=== PATIENT | male | born 1945 | race Caucasian/White ===

== ENCOUNTER → 2017-02-17 | Outpatient (CLI) | payer MEDICARE, OTHER ==
[~2017-02-17] MED LIST: ASPI-587 PO; ASPI-808 PO; ASPI-983 PO; CEFU500T63 PO; CLOP75TA PO; ELDERBERRY PO; HYDR-1231 PO; HYDR-3720 PO; IBUP100T34 PO; LOSA1TAB20 PO; LOSA50TA36 PO; MECL25TA3 PO; METO-387 PO; MULT-608; MULT-974 PO; MULT1TAB69 PO; OMG1KC
--- NOTE | 2017-02-17 12:47 | Diagnostic Imaging Report ---
EXAMINATION: Right lower extremity duplex venous ultrasound. TECHNIQUE: DVT protocol. Multiple sonographic images with color Doppler and waveform interrogation were performed of the right lower extremity veins with compression and augmentation maneuvers. INDICATION: Right leg pain. FINDINGS: The right lower extremity veins from the groin to below the knee veins were examined with normal color-flow, compressibility and normal waveform demonstrated. The great saphenous vein is patent. There are mildly dilated varicose veins seen in the calf without thrombosis. IMPRESSION: No evidence of DVT in the right lower extremity. Varicose veins in the calf. Dictated by: Dictated on workstation # [id number]
== END ==
LOC: RAD 12:01
PROVIDERS: ATTEND Nurse Practitioner Family
DX: I83.90 Asymptomatic varicose veins of unspecified lower extremity (principal); M79.604 Pain in right leg

== ENCOUNTER 2018-07-20 06:42 | Day surgery (SDC) | payer MEDICARE, OTHER ==
[2018-07-20] VITALS (22 sets, daily range): BP systolic 109–167; BP diastolic 15–110
[~2018-07-20] VITALS: Ht 177.8 cm; Wt 108.9 kg
[~2018-07-20 06:42] MED LIST changes: -LOSA50TA36 PO; +LOSA50TA7 PO
--- OUTSIDE RECORDS SUMMARY | 2018-07-20 06:46 | XMS REPORT | Continuity of Care Document ---
Author Author [facility] Organization [facility] Address Unknown Phone Unavailable Allergies Active Description Code Type Severity Reaction Onset Reported/Identified Relationship to Patient Clinical Status Yes No Known Drug Allergies [id number] Drug Allergy Mild N/A 03/01/2016 Medications There is no data. Problems Date Dx Coded Attending Type Code Diagnosis Diagnosed By 04/22/2012 Ot 715.31 LOC OSTEOARTH NOS-SHLDER 01/24/2014 JASMIN GUZMAN DO S Ot 276.8 HYPOPOTASSEMIA 01/24/2014 JASMIN GUZMAN DO S Ot 427.81 SINOATRIAL NODE DYSFUNCT 01/24/2014 WHITNEY GUZMAN DOLINE S Ot 428.0 CONGESTIVE HEART FAILURE NOS 01/24/2014 LIZETTE GUZMAN DOQUELINE S Ot 458.9 HYPOTENSION NOS 01/24/2014 LIZETTE GUZMAN DOQUELINE S Ot 585.9 CHRONIC KIDNEY DISEASE, UNSPECIFIED 01/24/2014 LIZETTE GUZMAN DOQUELINE S Ot 790.6 ABN BLOOD CHEMISTRY NEC 01/24/2014 LIZETTE GUZMAN DOQUELINE S Ot 802.0 NASAL BONE FX-CLOSED 01/24/2014 WHITNEY GUZMAN DOLINE S Ot 803.09 CL SKULL FX NEC-CONCUSS 01/24/2014 LIZETTE GUZMAN DOQUELINE S Ot 847.0 SPRAIN OF NECK 01/24/2014 LIZETTE GUZMAN DOQUELINE S Ot 924.11 CONTUSION OF KNEE 01/24/2014 WHITNEY GUZMAN DOLINE S Ot E000.8 OTHER EXTERNAL CAUSE STATUS 01/24/2014 JASMIN GUZMAN DO S Ot E001.1 ACTIVITIES INVOLVING RUNNING 01/24/2014 JASMIN GUZMAN DO S Ot E849.[address]/HIGHWAY 01/24/2014 JASMIN GUZMAN DO S Ot E888.9 FALL NOS 01/24/2014 OREJASMIN YA DO S Ot V17.3 FAM HX-ISCHEM HEART DIS 11/20/2014 Ot 715.91 11/20/2014 Ot V72.63 11/20/2014 Ot V72.81 11/20/2014 Ot V72.83 11/20/2014 Ot V74.8 11/20/2014 ADAN ARRINGTON, CHAZ Clarke Ot 729.5 PAIN IN LIMB 11/20/2014 ADAN ARRINGTON, CHAZ Clarke Ot 924.8 MULTIPLE CONTUSIONS NEC 11/20/2014 ADAN ARRINGTON, CHAZ Clarke Ot E000.8 OTHER EXTERNAL CAUSE STATUS 11/20/2014 ADAN ARRINGTON, CHAZ Clarke Ot E885.9 FALL FROM SLIPPING, TRIPPING, OR STUMBLI 03/01/2016 CAMILLE ARRINGTON, FABIEN Dailey Ot R42 DIZZINESS AND GIDDINESS 03/01/2016 CAMILLE ARRINGTON, FABIEN K Ot R51 HEADACHE 03/04/2016 CAMILLE ARRINGTON, FABIEN K Ot R42 DIZZINESS AND GIDDINESS 03/04/2016 CAMILLE ARRINGTON, FABIEN K Ot R51 HEADACHE 03/11/2016 CAMILLE ARRINGTON, FABIEN K Ot R42 DIZZINESS AND GIDDINESS 03/11/2016 CAMILLE ARRINGTON, FABIEN K Ot R51 HEADACHE 03/15/2016 CAMILLE ARRINGTON, FABIEN K Ot R42 DIZZINESS AND GIDDINESS 03/15/2016 CAMILLE ARRINGTON, FABIEN Dailey Ot R51 HEADACHE 02/17/2017 Ot 715.91 OSTEOARTHROS NOS-SHLDER 02/17/2017 Ot V72.63 PRE- PROCEDURAL LABORATORY EXAMINATION 02/17/2017 Ot V72.81 EXAM-PRE- OPERATIVE CARDIOVASCULAR 02/17/2017 Ot V72.83 EXAM PRE- OPERATIVE NEC 02/17/2017 Ot V74.8 SCREEN- BACTERIAL DIS NEC 02/17/2017 LIAN MCGARRY Ot M79.604 PAIN IN RIGHT LEG 03/15/2017 LIAN MCGARRY Ot I83.90 ASYMPTOMATIC VARICOSE VEINS OF UNSPECIFI 03/15/2017 LIAN MCGARRY Ot M79.604 PAIN IN RIGHT LEG 05/20/2017 JASMIN GUZMAN DO S Ot E03.9 HYPOTHYROIDISM, UNSPECIFIED 05/20/2017 JASMIN GUZMAN DO S Ot E66.9 OBESITY, UNSPECIFIED 05/20/2017 JASMIN GUZMAN DO Ot E78.5 HYPERLIPIDEMIA, UNSPECIFIED 05/20/2017 JASMIN GUZMAN DO Ot E86.0 DEHYDRATION 05/20/2017 JASMIN GUZMAN DO Ot I10 ESSENTIAL (PRIMARY) HYPERTENSION 05/20/2017 JASMIN GUZMAN DO Ot I25.10 ATHSCL HEART DISEASE OF [place] CORONARY 05/20/2017 JASMIN GUZMAN DO Ot I48.0 PAROXYSMAL ATRIAL FIBRILLATION 05/20/2017 JASMIN GUZMAN DO Ot I49.5 SICK SINUS SYNDROME 05/20/2017 JASMIN GUZMAN DO Ot N28.9 DISORDER OF KIDNEY AND URETER, UNSPECIFI 05/20/2017 JASMIN GUZMAN DO Ot R94.6 ABNORMAL RESULTS OF THYROID FUNCTION KEVIN 05/20/2017 JASMIN GUZMAN DO Ot Z68.32 BODY MASS INDEX (BMI) 32.0-32.9, ADULT 05/20/2017 JASMIN GUZMAN DO Ot Z95.5 PRESENCE OF CORONARY ANGIOPLASTY IMPLANT 05/20/2017 JASMIN GUZMAN DO Ot 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 DUAL SHARON IN CHEST SUBCU/FA 05/19/2017 8U303I0 MEASURE OF CARDIAC SAMPL PRESSURE, L H 05/19/2017 [id number] FLUOROSCOPY OF MULT COR ART USING L OSM 05/19/2017 [id number] FLUOROSCOPY OF LEFT HEART USING LOW OSMO 05/19/2017 Results Test Result Range Complete blood count (CBC) with automated white blood cell (WBC) differential - 03/01/16 14:45 Blood leukocytes automated count (number/volume) 7.7 10*3/uL 4.3-11.0 Blood erythrocytes automated count (number/volume) 4.96 10*6/uL 4.35-5.85 Venous blood hemoglobin measurement (mass/volume) 14.7 g/dL 13.3-17.7 Blood hematocrit (volume fraction) 44 % 40-54 Automated erythrocyte mean corpuscular volume 88 [foz_us] 80-99 Automated erythrocyte mean corpuscular hemoglobin (mass per erythrocyte) 30 pg 25-34 Automated erythrocyte mean corpuscular hemoglobin concentration measurement ( mass/volume) 34 g/dL 32-36 Automated erythrocyte distribution width ratio 14.0 % 10.0-14.5 Automated blood platelet count (count/volume) 197 10*3/uL 130-400 Automated blood platelet mean volume measurement 10.8 [foz_us] 7.4-10.4 Automated blood neutrophils/100 leukocytes 67 % 42-75 Automated blood lymphocytes/100 leukocytes 21 % 12-44 Blood monocytes/100 leukocytes 8 % 0-12 Automated blood eosinophils/100 leukocytes 3 % 0-10 Automated blood basophils/100 leukocytes 1 % 0-10 Blood neutrophils automated count (number/volume) 5.2 10*3 1.8-7.8 Blood lymphocytes automated count (number/volume) 1.6 10*3 1.0-4.0 Blood monocytes automated count (number/volume) 0.6 10*3 0.0-1.0 Automated eosinophil count 0.2 10*3/uL 0.0-0.3 Automated blood basophil count (count/volume) 0.1 10*3/uL 0.0-0.1 Comprehensive metabolic panel - 03/01/16 14:45 Serum or plasma sodium measurement (moles/volume) 139 mmol/L 135-145 Serum or plasma potassium measurement (moles/volume) 4.1 mmol/L 3.6-5.0 Serum or plasma chloride measurement (moles/volume) 105 mmol/L 98-107 Carbon dioxide 27 mmol/L 21-32 Serum or plasma anion gap determination (moles/volume) 7 mmol/L 5-14 Serum or plasma urea nitrogen measurement (mass/volume) 16 mg/dL 7-18 Serum or plasma creatinine measurement (mass/volume) 1.13 mg/dL 0.60-1.30 Serum or plasma urea nitrogen/creatinine mass ratio 14 NRG Serum or plasma creatinine measurement with calculation of estimated glomerular filtration rate > NRG Serum or plasma glucose measurement (mass/volume) 94 mg/dL 70-105 Serum or plasma calcium measurement (mass/volume) 9.3 mg/dL 8.5-10.1 Serum or plasma total bilirubin measurement (mass/volume) 0.8 mg/dL 0.1-1.0 Serum or plasma alkaline phosphatase measurement (enzymatic activity/volume) 70 U/L 40-136 Serum or plasma aspartate aminotransferase measurement (enzymatic activity/ volume) 18 U/L 5-34 Serum or plasma alanine aminotransferase measurement (enzymatic activity/volume ) 17 U/L 0-55 Serum or plasma protein measurement (mass/volume) 6.6 g/dL 6.4-8.2 Serum or plasma albumin measurement (mass/volume) 4.1 g/dL 3.2-4.5 Complete blood count (CBC) with automated white blood cell (WBC) differential - 05/18/17 10:56 Blood leukocytes automated count (number/volume) 11.3 10*3/uL 4.3-11.0 Blood erythrocytes automated count (number/volume) 5.37 10*6/uL 4.35-5.85 Venous blood hemoglobin measurement (mass/volume) 15.8 g/dL 13.3-17.7 Blood hematocrit (volume fraction) 47 % 40-54 Automated erythrocyte mean corpuscular volume 87 [foz_us] 80-99 Automated erythrocyte mean corpuscular hemoglobin (mass per erythrocyte) 29 pg 25-34 Automated erythrocyte mean corpuscular hemoglobin concentration measurement ( mass/volume) 34 g/dL 32-36 Automated erythrocyte distribution width ratio 13.7 % 10.0-14.5 Automated blood platelet count (count/volume) 278 10*3/uL 130-400 Automated blood platelet mean volume measurement 11.5 [foz_us] 7.4-10.4 Automated blood neutrophils/100 leukocytes 79 % 42-75 Automated blood lymphocytes/100 leukocytes 13 % 12-44 Blood monocytes/100 leukocytes 8 % 0-12 Automated blood eosinophils/100 leukocytes 0 % 0-10 Automated blood basophils/100 leukocytes 0 % 0-10 Blood neutrophils automated count (number/volume) 8.9 10*3 1.8-7.8 Blood lymphocytes automated count (number/volume) 1.5 10*3 1.0-4.0 Blood monocytes automated count (number/volume) 0.9 10*3 0.0-1.0 Automated eosinophil count 0.1 10*3/uL 0.0-0.3 Automated blood basophil count (count/volume) 0.0 10*3/uL 0.0-0.1 PT panel in platelet poor plasma by coagulation assay - 05/18/17 10:56 Prothrombin time (PT) in platelet poor plasma by coagulation assay 13.1 s 12.2-14.7 INR in platelet poor plasma or blood by coagulation assay 1.0 0.8-1.4 Activated partial thromboplastin time (aPTT) in platelet poor plasma bycoagulation assay - 05/18/17 10:56 Activated partial thromboplastin time (aPTT) in platelet poor plasma bycoagulation assay 24 s 24-35 Comprehensive metabolic panel - 05/18/17 10:56 Serum or plasma sodium measurement (moles/volume) 140 mmol/L 135-145 Serum or plasma potassium measurement (moles/volume) 4.1 mmol/L 3.6-5.0 Serum or plasma chloride measurement (moles/volume) 104 mmol/L 98-107 Carbon dioxide 24 mmol/L 21-32 Serum or plasma anion gap determination (moles/volume) 12 mmol/L 5-14 Serum or plasma urea nitrogen measurement (mass/volume) 20 mg/dL 7-18 Serum or plasma creatinine measurement (mass/volume) 1.98 mg/dL 0.60-1.30 Serum or plasma urea nitrogen/creatinine mass ratio 10 NRG Serum or plasma creatinine measurement with calculation of estimated glomerular filtration rate 33 NRG Serum or plasma glucose measurement (mass/volume) 170 mg/dL 70-105 Serum or plasma calcium measurement (mass/volume) 9.8 mg/dL 8.5-10.1 Serum or plasma total bilirubin measurement (mass/volume) 1.0 mg/dL 0.1-1.0 Serum or plasma alkaline phosphatase measurement (enzymatic activity/volume) 73 U/L 40-136 Serum or plasma aspartate aminotransferase measurement (enzymatic activity/ volume) 20 U/L 5-34 Serum or plasma alanine aminotransferase measurement (enzymatic activity/volume ) 15 U/L 0-55 Serum or plasma protein measurement (mass/volume) 6.8 g/dL 6.4-8.2 Serum or plasma albumin measurement (mass/volume) 4.0 g/dL 3.2-4.5 Magnesium - 05/18/17 10:56 Magnesium 1.9 mg/dL 1.8-2.4 Serum or plasma lithium measurement (moles/volume) - 05/18/17 10:56 BNP level 214.0 pg/mL <100.0 Serum or plasma troponin i.cardiac measurement (mass/volume) - 05/18/17 10:56 Serum or plasma troponin i.cardiac measurement (mass/volume) < ng/ mL <0.30 Serum or plasma thyroxine (T4) free measurement (mass/volume) - 05/18/17 10:56 Serum or plasma thyroxine (T4) free measurement (mass/volume) 0.99 ng/dL 0.70-1.48 Serum or plasma thyrotropin measurement by detection limit <=0.05 miu/l (units/ volume) - 05/18/17 10:56 Serum or plasma thyrotropin measurement by detection limit <=0.05 miu/l (units/ volume) 7.81 u[iU]/mL 0.35-4.94 Complete blood count (CBC) with automated white blood cell (WBC) differential - 05/19/17 04:50 Blood leukocytes automated count (number/volume) 6.0 10*3/uL 4.3-11.0 Blood erythrocytes automated count (number/volume) 4.57 10*6/uL 4.35-5.85 Venous blood hemoglobin measurement (mass/volume) 13.4 g/dL 13.3-17.7 Blood hematocrit (volume fraction) 41 % 40-54 Automated erythrocyte mean corpuscular volume 89 [foz_us] 80-99 Automated erythrocyte mean corpuscular hemoglobin (mass per erythrocyte) 29 pg 25-34 Automated erythrocyte mean corpuscular hemoglobin concentration measurement ( mass/volume) 33 g/dL 32-36 Automated erythrocyte distribution width ratio 13.8 % 10.0-14.5 Automated blood platelet count (count/volume) 187 10*3/uL 130-400 Automated blood platelet mean volume measurement 11.2 [foz_us] 7.4-10.4 Automated blood neutrophils/100 leukocytes 56 % 42-75 Automated blood lymphocytes/100 leukocytes 29 % 12-44 Blood monocytes/100 leukocytes 11 % 0-12 Automated blood eosinophils/100 leukocytes 4 % 0-10 Automated blood basophils/100 leukocytes 0 % 0-10 Blood neutrophils automated count (number/volume) 3.4 10*3 1.8-7.8 Blood lymphocytes automated count (number/volume) 1.7 10*3 1.0-4.0 Blood monocytes automated count (number/volume) 0.7 10*3 0.0-1.0 Automated eosinophil count 0.3 10*3/uL 0.0-0.3 Automated blood basophil count (count/volume) 0.0 10*3/uL 0.0-0.1 Comprehensive metabolic panel - 05/19/17 04:50 Serum or plasma sodium measurement (moles/volume) 139 mmol/L 135-145 Serum or plasma potassium measurement (moles/volume) 3.6 mmol/L 3.6-5.0 Serum or plasma chloride measurement (moles/volume) 106 mmol/L 98-107 Carbon dioxide 22 mmol/L 21-32 Serum or plasma anion gap determination (moles/volume) 11 mmol/L 5-14 Serum or plasma urea nitrogen measurement (mass/volume) 20 mg/dL 7-18 Serum or plasma creatinine measurement (mass/volume) 1.37 mg/dL 0.60-1.30 Serum or plasma urea nitrogen/creatinine mass ratio 15 NRG Serum or plasma creatinine measurement with calculation of estimated glomerular filtration rate 51 NRG Serum or plasma glucose measurement (mass/volume) 97 mg/dL 70-105 Serum or plasma calcium measurement (mass/volume) 8.5 mg/dL 8.5-10.1 Serum or plasma total bilirubin measurement (mass/volume) 0.9 mg/dL 0.1-1.0 Serum or plasma alkaline phosphatase measurement (enzymatic activity/volume) 58 U/L 40-136 Serum or plasma aspartate aminotransferase measurement (enzymatic activity/ volume) 15 U/L 5-34 Serum or plasma alanine aminotransferase measurement (enzymatic activity/volume ) 11 U/L 0-55 Serum or plasma protein measurement (mass/volume) 5.4 g/dL 6.4-8.2 Serum or plasma albumin measurement (mass/volume) 3.2 g/dL 3.2-4.5 Lipid 1996 panel - 05/19/17 04:50 Serum or plasma triglyceride measurement (mass/volume) 114 mg/dL <150 Serum or plasma cholesterol measurement (mass/volume) 145 mg/dL < 200 Serum or plasma cholesterol in HDL measurement (mass/volume) 37 mg/ dL 40-60 Cholesterol in LDL [mass/volume] in serum or plasma by direct assay 100 mg/dL 1-129 Serum or plasma cholesterol in VLDL measurement (mass/volume) 23 mg/ dL 5-40 Automated blood complete blood count (hemogram) panel - 05/20/17 04:25 Blood leukocytes automated count (number/volume) 6.5 10*3/uL 4.3-11.0 Blood erythrocytes automated count (number/volume) 4.48 10*6/uL 4.35-5.85 Venous blood hemoglobin measurement (mass/volume) 13.3 g/dL 13.3-17.7 Blood hematocrit (volume fraction) 40 % 40-54 Automated erythrocyte mean corpuscular volume 89 [foz_us] 80-99 Automated erythrocyte mean corpuscular hemoglobin (mass per erythrocyte) 30 pg 25-34 Automated erythrocyte mean corpuscular hemoglobin concentration measurement ( mass/volume) 33 g/dL 32-36 Automated erythrocyte distribution width ratio 13.5 % 10.0-14.5 Automated blood platelet count (count/volume) 182 10*3/uL 130-400 Automated blood platelet mean volume measurement 11.0 [foz_us] 7.4-10.4 Whole blood basic metabolic panel - 05/20/17 04:25 Serum or plasma sodium measurement (moles/volume) 141 mmol/L 135-145 Serum or plasma potassium measurement (moles/volume) 4.0 mmol/L 3.6-5.0 Serum or plasma chloride measurement (moles/volume) 108 mmol/L 98-107 Carbon dioxide 24 mmol/L 21-32 Serum or plasma anion gap determination (moles/volume) 9 mmol/L 5-14 Serum or plasma urea nitrogen measurement (mass/volume) 16 mg/dL 7-18 Serum or plasma creatinine measurement (mass/volume) 1.17 mg/dL 0.60-1.30 Serum or plasma urea nitrogen/creatinine mass ratio 14 NRG Serum or plasma creatinine measurement with calculation of estimated glomerular filtration rate > NRG Serum or plasma glucose measurement (mass/volume) 97 mg/dL 70-105 Serum or plasma calcium measurement (mass/volume) 8.2 mg/dL 8.5-10.1 Encounters ACCT No. Visit Date/Time Discharge Status Pt. Type Provider Facility Loc./Unit Complaint [id number] 05/18/2017 12:48:00 05/20/2017 13:35:00 DIS Outpatient JASMIN GUZMAN DO [facility] ICU SYNCOPAL EPISODE; NEW ONSET ATRIAL FIBRILLATION [id number] 02/17/2017 12:01:00 02/17/2017 23:59:59 CLS Outpatient ASHTYNJenniferTREMAYNE LIAN Samuel GELLER [facility] RAD R LEG PAIN, PRONOUNCED VARICOSILES [id number] 03/01/2016 14:12:00 03/01/2016 16:01:00 DIS Emergency CAMILLE ARRINGTON, FABIEN Dailey [facility] ER FALL DIZZINESS/HEAD PAIN [id number] 11/20/2014 08:17:00 11/20/2014 09:58:00 DIS Emergency CHAZ ARELLANO MD [facility] ER ARM KNEE ANKLE PAIN [id number] 01/21/2014 10:30:00 01/24/2014 12:50:00 DIS Inpatient JASMIN GUZMAN DO [facility] ICU SYMPTOMATIC HYPOTENSION JUNCTIONAL SKULL BRADYCARD [id number] 04/21/2012 06:00:00 Document Registration [id number] 04/20/2012 07:57:00 Document Registration 01/26/16 07/05/2018 06:08:09 07/05/2018 23:59:59 CLS Outpatient Jasmin Guzman [id number] 04/17/2018 11:00:00 04/17/2018 23:59:00 DIS Outpatient Jasmin Guzman
[2018-07-20] MEDS ORDERED: LIDOCAINE 2% VISCOUS 15 ML UDC ONE (06:53)
[2018-07-20] MEDS ORDERED: NS IV 1000 ML 1,000 ML ONE (06:54)
[2018-07-20] MEDS ORDERED: NS IV 1000 ML 1,000 ML IV SCH (07:00)
[2018-07-20] MEDS ORDERED: ASPI-808 PO (07:26)
[2018-07-20] MEDS ORDERED: FISH1CAP15 PO (07:26)
[2018-07-20] MEDS ORDERED: APIX5TAB PO (07:26)
[2018-07-20] MEDS ORDERED: METO-370 PO (07:26)
[2018-07-20] MEDS ORDERED: VITA400C60 PO (07:26)
--- NOTE | 2018-07-20 07:44 | Cardiac Procedure Note-CS/ASA ---
Pre-Procedure Note Pre-Op Procedure Note H&P Reviewed The H&P was reviewed, patient examined and no changes noted. Date H&P Reviewed: Jul 20, 2018 Time H&P Reviewed: 07:43 Conscious Sedation Pre-Proced Time 07:43 ASA Score 3 For ASA 3 and 4: Consider anesthesia and medical clearance. Also, for patients with a history of failed moderate sedation consider anesthesia. Airway Lungs Heart ASA score ASA 1: a normal healthy patient ASA 2: a patient with a mild systemic disease (mid diabetes, controlled hypertension, obesity x ASA 3: a patient with a severe systemic disease that limits activity (angina , COPD, prior Myocardial infarction) ASA 4: a patient with an incapacitating disease that is a constant threat to life (CHF, renal failure) ASA 5: a moribund patient not expected to survive 24 hrs. (ruptured aneurysm) ASA 6: a declared brain patient whose organs are being harvested. For emergent operations, add the letter E after the classification Mallampati Classification Grade 3 Sedation Plan Analgesia, Amnesia, Plan communicated to team members, Discussed options with patient/fam, Discussed risks with patient/fam The patient is an appropriate candidate to undergo the planned procedure, sedation, and anesthesia. The patient immediately re-assessed prior to indication. LIZ THOMPSON MD Jul 20, 2018 07:44
[2018-07-20] MEDS ORDERED: proPOfol 200 MG/20 ML (DIPRIVAN) VIAL IV ONE (07:47)
[2018-07-20] MEDS ORDERED: MIDAZOLAM 2 MG/2 ML (VERSED) VIAL ONE (07:57)
[2018-07-20] MEDS ORDERED: AMIODARONE 150 MG/3 ML (CORDARONE) AMP IV ONE (08:21)
--- NOTE | 2018-07-20 08:26 | Progress Note-Standard ---
Standard Progress Note Progress Notes/Assess & Plan Date Seen by a Provider: Jul 20, 2018 Time Seen by a Provider: 08:00 Progress/Assessment & Plan consult for sedation for radhika/cardioversion. asa 3. start time end time 0815. 60mg propofol and 1mg versed given. mac anesthesia ROBERT CHURCH CRNA Jul 20, 2018 08:26
--- NOTE | 2018-07-20 08:28 | Cardioversion ---
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 Electrical cardioversion was carried out with anesthesia support with propofol. 200 joules of synchronized shock was delivered through external patches which promptly restored sinus rhythm. The patient tolerated the procedure well. Conclusions: successful electrical cardioversion in terminating atrial fibrillation Final Diagnosis: Paroxysmal atrial fibrillation Severe mitral regurgitation Sick sinus syndrome Hypertension LIZ JONES MD Jul 20, 2018 08:28
[2018-07-20] MEDS ORDERED: AMIO200T4 PO (08:30)
[2018-07-20] MEDS ORDERED: AMIODARONE INJECTION 450 MG in D5W IV SOLUTION (EXCEL) 250 ML IV SCH (08:30)
[2018-07-20] MEDS ORDERED: AMIODARONE FOR BOLUS 150 MG in D5W 100 ML IVPB 100 ML IV ONE (08:30)
--- NOTE | 2018-07-20 08:34 | NUR ---
I previously charted that anesthesia gave 2mg versed, He actually gave 1 mg versed IV. KIA, RN
[2018-07-20] MEDS ORDERED: OMEGA 3 (FISH OIL) 1000 MG CAP PO SCH (09:00)
[2018-07-20] MEDS ORDERED: meTOproloL SUCCINATE 50 MG (TOPROL XL) TAB PO SCH (09:00)
[2018-07-20] MEDS ORDERED: VITAMIN E 400 INTLU CAP PO SCH (09:00)
[2018-07-20] MEDS ORDERED: AMIODARONE 200 MG (CORDARONE) TAB PO SCH (09:00)
[2018-07-20] MEDS ORDERED: APIXABAN 5 MG (ELIQUIS) TABLET PO SCH (09:00)
[2018-07-20] MEDS ORDERED: LOSARTAN 50 MG (COZAAR) TAB PO SCH (09:00)
[2018-07-20] MEDS ORDERED: MULTIVIT W/MINERALS TAB (THERAGRAN M) PO SCH (09:00)
--- NOTE | 2018-07-20 11:07 | NUR ---
Pastoral Care Visit.
== END 2018-07-20 17:05 | disposition home or self-care (01) ==
LOC: CATH 06:42 → ICU 08:50 → CATH 17:05
PROVIDERS: ATTEND Internal Medicine Cardiovascular Disease
DX: I48.0 Paroxysmal atrial fibrillation (principal); I34.0 Nonrheumatic mitral (valve) insufficiency; I49.5 Sick sinus syndrome; I12.9 Hypertensive chronic kidney disease with stage 1 through stage 4 chronic kidney disease, or unspecified chronic kidney disease; I44.7 Left bundle-branch block, unspecified; I25.10 Atherosclerotic heart disease of native coronary artery without angina pectoris; Z95.0 Presence of cardiac pacemaker; Z79.01 Long term (current) use of anticoagulants; Z79.899 Other long term (current) drug therapy; Z95.5 Presence of coronary angioplasty implant and graft; N18.9 Chronic kidney disease, unspecified; E03.9 Hypothyroidism, unspecified; E66.9 Obesity, unspecified; Z68.31 Body mass index [BMI] 31.0-31.9, adult
CPT/HCPCS: 92960; 93005; 93312; 93320; 93325

== ENCOUNTER → 2018-07-24 | Outpatient (CLI) | payer MEDICARE, OTHER ==
[~2018-07-24] MED LIST changes: +AMIO200T4 PO; +APIX5TAB PO; +CATHETER FLUSH 10 ML SYR IV PRN; +FISH1CAP15 PO; +METO-370 PO; +REGADENOSON 0.4 MG/5 ML SYR (LEXISCAN) IV ONE; +VITA400C60 PO
[2018-07-24 12:26] VITALS: BP 163/108
--- NOTE | 2018-07-26 14:57 | STRESS TEST ---
DATE OF SERVICE: 07/24/2018 LEXISCAN MYOVIEW STRESS TEST INDICATION: Coronary artery disease. Baseline heart rate is 60. Baseline blood pressure 170/100. Baseline EKG is sinus rhythm with left bundle branch block. In summary, the patient was injected with 10.94 mCi of technetium-99 Myoview and the resting images were obtained. Then, the patient received 0.4 mg of Lexiscan followed by 30.9 mCi of technetium-99 Myoview. Throughout the test, there were no EKG changes. The resting and stress images were reviewed and compared in the short axis, horizontal long axis, and vertical long axis views. Review of the images showed diaphragmatic attenuation with decreased uptake involving the mid to apical inferior wall and inferolateral wall, which is fixed with no significant reversibility. SSS is 7, SDS 1, TID value 1.12. On the gated images, the left ventricle appeared to be prominent with mild diffuse left ventricular hypokinesia, calculated ejection fraction 41%. CONCLUSION: 1. The patient tolerated Lexiscan well. 2. Baseline left bundle branch block persisted throughout test. 3. Diaphragmatic attenuation with fixed defect involving the mid to apical inferior wall and inferolateral wall. 4. Prominent left ventricle with diffuse left ventricular hypokinesia with calculated ejection fraction 41%. Job ID: [id number] DocumentID: [id number] Dictated Date: 07/26/2018 12:31:56 Jewelry Sales Coordinator Date: 07/26/2018 14:57:23 Dictated By: LIZ THOMPSON MD
== END ==
LOC: CARD 10:41
PROVIDERS: ATTEND Internal Medicine Cardiovascular Disease
DX: I25.10 Atherosclerotic heart disease of native coronary artery without angina pectoris (principal); I44.7 Left bundle-branch block, unspecified; I48.0 Paroxysmal atrial fibrillation; I10 Essential (primary) hypertension
CPT/HCPCS: 78452; 93017

== ENCOUNTER → 2018-12-23 | Outpatient (CLI) | payer MEDICARE, OTHER ==
[~2018-12-23] MED LIST changes: -CATHETER FLUSH 10 ML SYR IV PRN; +LOSA50TA63 PO; -LOSA50TA7 PO; -REGADENOSON 0.4 MG/5 ML SYR (LEXISCAN) IV ONE
--- NOTE | 2018-12-23 13:00 | Diagnostic Imaging Report ---
PROCEDURE: US Thyroid. TECHNIQUE: Multiple real-time grayscale images were obtained of the thyroid in various projections. INDICATION: Hypothyroidism. FINDINGS: Right lobe of the thyroid measures 4.8 x 2.0 x 1.4 cm and the left lobe measures 5.4 x 1.8 x 1.4 cm. Isthmus is 5 mm in thickness. Both lobes appear fairly homogeneous. No discrete thyroid mass is detected. IMPRESSION: Unremarkable thyroid ultrasound. Dictated by: Dictated on workstation # [id number]
== END ==
LOC: RAD 11:16
PROVIDERS: ATTEND Family Medicine
DX: E03.9 Hypothyroidism, unspecified (principal)
CPT/HCPCS: 76536

== ENCOUNTER → 2018-12-25 | Outpatient (CLI) | payer MEDICARE, OTHER ==
--- NOTE | 2018-12-25 17:22 | Diagnostic Imaging Report ---
PROCEDURE: US renal, bilateral. TECHNIQUE: Multiple real-time grayscale images were obtained over the kidneys in various projections, bilaterally. INDICATION: Decreased kidney function and hypertension. FINDINGS: Right kidney measures 9.3 x 5.5 x 5.4 cm and the left kidney measures 10.8 x 5.7 x 4.8 cm. Cortical thickness and echogenicity is normal. No calculi or hydronephrosis is seen. There is a large simple appearing left renal cyst, measuring 6.7 x 5.4 x 7.5 cm. Bilateral ureteral jets were identified within the bladder. IMPRESSION: Large simple left renal cyst. No other significant abnormality is detected. Dictated by: Dictated on workstation # [id number]
== END ==
LOC: RAD 12:11
PROVIDERS: ATTEND Family Medicine
DX: N28.1 Cyst of kidney, acquired (principal); I10 Essential (primary) hypertension
CPT/HCPCS: 76770

== ENCOUNTER → 2018-12-28 | Outpatient (CLI) | payer MEDICARE, OTHER ==
[~2018-12-28] MED LIST changes: +HOLD METFORMIN - RECEIVED CONTRAST 20 ML VIAL IV SCH; +IOHEXOL 350 MG/ML 100 ML (OMNIPAQUE 350) VIAL IV ONE; +NS 100 ML (IVPB) BAG IV ONE
--- NOTE | 2018-12-28 17:04 | Diagnostic Imaging Report ---
CLINICAL INDICATION: Patient with mass-like area above the sternal notch. BB placed in the area of concern. EXAM: CT scan of the neck soft tissue performed with 50 cc of Omnipaque 350 IV contrast. Coronal and sagittal reformatted images were created. COMPARISON: CT scan of the cervical spine without contrast dated 05/18/2017. FINDINGS: There is no measurable neck soft tissue mass above the sternal notch region of concern. There is no abnormality seen beneath the BB marker. There is prominent soft tissue fat in the area which appears appropriate for the patient's body habitus. There is mild prominence of the bilateral palantine adenoid soft tissue which may be reactive. There is no measurable mass. Left tonsillith is noted. The nasopharynx, oropharynx, and hypopharynx are otherwise unremarkable. The glottis is in close position slightly limiting evaluation of the laryngeal structures. Otherwise laryngeal structures are grossly symmetric as visualized. There is no significant neck lymphadenopathy. Thyroid gland is unremarkable as visualized. Salivary glands are unremarkable. Dental hardware streak artifact obscures portions of the oral cavity and tongue. The visualized portions of the oral cavity, tongue, sublingual and submandibular areas are unremarkable. There is dependent atelectasis involving the posterior aspects of both upper lobes. There is hypertrophic spurs involving the cervical spine. There is atherosclerotic disease involving the carotid arteries with no major stenosis, as visualized. Limited visualization of the intracranial structures, paranasal sinuses and temporal bone structures are unremarkable. IMPRESSION: 1: There is no neck soft tissue mass, lymphadenopathy, or fluid collection seen on this exam. 2: There is prominence of the bilateral palatine tonsillar tissue which may be reactive. 3: The remainder of this exam shows no other significant abnormality. Dictated by: Dictated on workstation # [id number]
== END ==
LOC: RAD 14:59
PROVIDERS: ATTEND Family Medicine
DX: E03.9 Hypothyroidism, unspecified (principal); R22.1 Localized swelling, mass and lump, neck; R13.10 Dysphagia, unspecified; Z97.2 Presence of dental prosthetic device (complete) (partial)
CPT/HCPCS: 70491

== ENCOUNTER → 2019-09-02 | Outpatient (CLI) | payer MEDICARE, OTHER ==
[~2019-09-02] MED LIST changes: -HOLD METFORMIN - RECEIVED CONTRAST 20 ML VIAL IV SCH; -IOHEXOL 350 MG/ML 100 ML (OMNIPAQUE 350) VIAL IV ONE; -METO-370 PO; -METO-387 PO; +METO50TA7 PO; +MTP25TSR PO; -NS 100 ML (IVPB) BAG IV ONE
--- NOTE | 2019-09-02 13:15 | Diagnostic Imaging Report ---
EXAMINATION: PA chest at 109h. INDICATION: Pre-MRI screening for pacemaker The borderline cardiomegaly noted on the prior exam of is again evident and no different. The left-sided pacemaker seen previously is also again visualized and seems stable. The leads appear to be intact. The lungs are clear. There is no evidence for failure, pneumonia or for a pleural effusion. The mediastinum is not widened. The osseous structures are intact. The total shoulder prosthesis on the right seen previously is again evident and no different. IMPRESSION: 1. There is no evidence for an acute cardiopulmonary abnormality. 2. The Left-sided pacemaker appears intact. Dictated by: Dictated on workstation # [id number]
--- NOTE | 2019-09-02 14:08 | Diagnostic Imaging Report ---
MRI LT LOWER EXT JOINT W/O TECHNIQUE: Multiplanar, multisequence MR imaging of the left knee was performed without contrast. COMPARISON: None available. INDICATION: Left knee pain. FINDINGS: MENISCI Medial meniscus: Complex tear in the posterior horn of the medial meniscus has a dominant radial component that is near complete. The body of the medial meniscus is partially extruded into the medial gutter. Lateral meniscus: Normal. LIGAMENTS ACL: Intact. PCL: Intact. MCL: Intact. LCL: The lateral collateral ligamentous complex is intact. EXTENSOR MECHANISM The extensor mechanism is intact. CARTILAGE Medial compartment: Partial-thickness chondral loss in the posterior weightbearing aspect of the medial femoral condyle. Lateral compartment: Low-grade partial-thickness chondral loss in the central and posterior weightbearing aspect of the lateral femoral condyle. Patellofemoral compartment: Multifocal full-thickness chondral fissuring and chondral loss is greatest in the lateral patellar facet. BONE No fracture, stress fracture or osteonecrosis. SOFT TISSUE Small knee joint effusion. No Costello's cyst. IMPRESSION: 1. Complex tear of the posterior horn and medial meniscus has a near complete radial component. 2. Tricompartmental knee osteoarthritis is most advanced in the patellofemoral compartment with multiple areas of full-thickness articular cartilage loss. 3. Small knee joint effusion. Dictated by: Dictated on workstation # [id number]
== END ==
LOC: RAD 12:37
PROVIDERS: ATTEND Orthopaedic Surgery
DX: M23.8X2 Other internal derangements of left knee (principal); M17.12 Unilateral primary osteoarthritis, left knee; M25.462 Effusion, left knee; Z95.0 Presence of cardiac pacemaker
CPT/HCPCS: 71045; 73721

== ENCOUNTER → 2020-02-04 | Outpatient (CLI) | payer MEDICARE, OTHER ==
[~2020-02-04] MED LIST changes: +MULT-567 PO; -MULT1TAB69 PO
== END ==
LOC: CARD 09:40
PROVIDERS: ATTEND Internal Medicine Cardiovascular Disease
DX: I44.7 Left bundle-branch block, unspecified (principal); I48.0 Paroxysmal atrial fibrillation; I49.3 Ventricular premature depolarization; I48.21 Permanent atrial fibrillation; I49.5 Sick sinus syndrome
CPT/HCPCS: 93306

== ENCOUNTER → 2020-09-18 | Outpatient (CLI) | payer MEDICARE, OTHER ==
[~2020-09-18] VITALS: Ht 177 cm; Wt 102.0 kg
[~2020-09-18] MED LIST changes: -AMIO200T4 PO; +AMIO200T6 PO; +ASPI-1238 PO; -ASPI-983 PO; +CATHETER FLUSH 10 ML SYR IV PRN; +REGADENOSON 0.4 MG/5 ML SYR (LEXISCAN) IV ONE
[2020-09-18 09:08] VITALS: BP 147/92
--- NOTE | 2020-09-18 11:36 | Cardiology Stress Test Report ---
Stress Test Report Date of Procedure/Referring: Date of Procedure: Sep 18, 2020 Flora De Guzman Admitting Physician Janae Guzman DO Indications: CAD Baseline Heart Rate: 57 Baseline Blood Pressure: Blood Pressure Systolic: 147 Blood Pressure Diastolic: 92 Baseline Vitals Vital Signs Date Time Temp Pulse Resp B/P (MAP) Pulse Ox O2 Delivery O2 Flow Rate FiO2 09/18/20 09:08 56 18 147/92 (110) 99 Room Air Baseline EKG: Baseline EKG: atrial fibrillation, ventricular paced rhythm Summary After explaining the procedure to the patient, he signed a consent and then brought to the stress nuclear laboratory. Patient received 0.4 mg Lexiscan for stress test, ECG, heart rate and blood pressure were monitored continuously. Resting and stress dose of radio tracer were injected, imaging was acquired and reviewed in short axis, horizontal long axis and vertical long axis views. TID: 1.17 SSS: 6 SDS: 1 EF: 35 1. Patient tolerated Lexiscan well 2. Baseline atrial fibrillation with ventricular paced rhythm 3. Mild reversible ischemia at the apex and inferoapical segment, diaphragmatic attenuation with fixed defect at the base of the inferoseptum. 4. Diffuse left ventricular hypokinesia, akinesia of the apex, hypokinesia at the anteroapical and inferoapical segment of the left ventricle, hypokinesia of the septum due to left bundle branch block LIZ THOMPSON MD Sep 18, 2020 11:36
== END ==
LOC: CARD 07:45
PROVIDERS: ATTEND Physician Assistant
DX: I25.10 Atherosclerotic heart disease of native coronary artery without angina pectoris (principal)
CPT/HCPCS: 78452; 93017; A9502

== ENCOUNTER → 2021-07-16 | Outpatient (CLI) ==
[~2021-07-16] MED LIST changes: -AMIO200T6 PO; +AMIO200T65 PO; -CATHETER FLUSH 10 ML SYR IV PRN; -REGADENOSON 0.4 MG/5 ML SYR (LEXISCAN) IV ONE
== END ==
LOC: MERGE 05:18 → LABNPT 05:18
PROVIDERS: ATTEND Orthopaedic Surgery
DX: Z01.812 Encounter for preprocedural laboratory examination (principal); Z20.822 Contact with and (suspected) exposure to COVID-19
CPT/HCPCS: 87636

== ENCOUNTER 2021-08-04 00:06 | Emergency (ER) | payer MEDICARE, OTHER ==
[~2021-08-04] VITALS: Ht 177.8 cm; Wt 102.5 kg
--- NOTE | 2021-08-04 01:02 | ED Lower Extremity ---
General Chief Complaint: Lower Extremity Stated Complaint: RT KNEE REPLACEMENT SURGERY PAIN Nursing Triage Note: Pt arrives via POV from home for c/o right knee pain. Pt reports right knee replacement 07/11/[address] Bradford Velasquez. Pt states he has been going to all PT appt, states that he has been having increased pain to the surgical site. Surgical incision well approximated, brad intact, no redness/swelling/drainage/increased warmth noted at this time. Source: patient, spouse History of Present Illness Date Seen by Provider: Aug 04, 2021 Time Seen by Provider: 00:48 Initial Comments PT ARRIVES VIA POV FROM HOME PT HAD RIGHT KNEE REPLACEMENT BY DR. VELASQUEZ AT [address] IN [place] ON 07/17/21 AND RELEASED THE NEXT DAY PT STATES HE WAS DISMISSED WITH PRESCRIPTIONS FOR TRAMADOL AND OXYCODONE TOOK LAST OXYCODONE ON Friday08/01/21, AND HAS CONTINUED TO TAKE TRAMDOL LAST DOSE OF TRAMADOL WAS AT 2100 TONIGHT HAS HAD INCREASED PAIN SINCE YESTERDAY ( FRIDAY )--PAIN IS MOSTLY JUST ABOVE THE KNEE IN MID ANTERIOR THIGH, AND IN LATERAL HIP AREA. NO POSTERIOR THIGH OR CALF PAIN HAS BEEN DOING IN-HOME PHYSICAL THERAPY, WITH LAST SESSION YESTERDAY ( FRIDAY ), AND IS TO START OUTPATIENT THERAPY ON Friday08/06/[address] PT HAD ROUTINE FOLLOW UP APPOINTMENT ON Friday08/01/[address] 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 BRAUN ORTHOPEDIC SURGEON: DR. VELASQUEZ Allergies and Home Medications Allergies Coded Allergies: No Known Drug Allergies (Unverified , 03/01/16) Patient Home Medication List Home Medication List Reviewed: Yes Amiodarone HCl (Amiodarone HCl) 200 Mg Tablet, 200 MG PO BID Prescribed by: LIZ THOMPSON on 07/20/18 0830 Apixaban (Eliquis) 5 Mg Tablet, 5 MG PO BID, (Reported) Entered as Reported by: MARCO ANTONIO REZA on 07/20/18725 Fish Oil/Dha/Epa (Fish Oil 1,200 mg Fish Oil) 1 Each Capsule, 1 EACH PO DAILY, (Reported) Entered as Reported by: MARCO ANTONIO REZA on 07/20/18725 Losartan Potassium (Losartan Potassium) 50 Mg Tablet, 50 MG PO DAILY Prescribed by: LIZ THOMPSON on 05/20/17 0809 Metoprolol Succinate (Metoprolol Succinate) 50 Mg Tab.er.24h, 50 MG PO DAILY, (Reported) Entered as Reported by: MARCO ANTONIO REZA on 07/20/18725 Multivitamin (Multivitamins) 1 Each Tablet, 1 TAB PO DAILY, (Reported) Entered as Reported by: CATE SARABIA on 05/18/17 1609 Oxycodone HCl/Acetaminophen (Oxycodone-Acetaminophen 5-325) 1 Each Tablet, 1 EACH PO Q4H PRN for PAIN-MODERATE Prescribed by: SEAN ABBASI on 08/04/21 0105 Vitamin E Acetate (Vitamin E) 400 Unit Capsule, 400 UNIT PO DAILY, (Reported) Entered as Reported by: MARCO ANTONIO REZA on 07/20/18725 Review of Systems Constitutional: no symptoms reported Musculoskeletal: see HPI Skin: no symptoms reported Psychiatric/Neurological: No Symptoms Reported Past Ghberym-Xzsckc-Jirbyx Hx Patient Social History Tobacco Use?: No Use of E-Cig and/or Vaping dev: No Substance use?: No Alcohol Use?: No Pt feels they are or have been: No Immunizations Up To Date Tetanus Booster (TDap): Less than 5yrs Influenza Vaccine Up-to-Date: Yes; Up-to-Date COVID19 Vaccine 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 VELASQUEZ AT [address] IN [place] 07/17/21 Surgeries: Yes (SKIN LESION FROM EAR; RIGHT SHOULDER REPLACEMENT; CARDIAC CATH--STENT X 1) Cardiac, Coronary Stent, Joint Replacement, Orthopedic, Pacemaker Respiratory: No Currently Using CPAP: No Currently Using BIPAP: No Cardiac: Yes (STENT X 1 01/2014 AFTER SYNCOPAL EPISODE DUE TO BRADYCARDIA;PACEMAKER) Atrial Fibrillation, Coronary Artery Disease, Hypertension, Syncope Neurological: No Reproductive Disorders: No Genitourinary: No Gastrointestinal: No Musculoskeletal: Yes (RIGHT KNEE REPLACEMENT 07/17/21 ) Arthritis, Fractures Endocrine: No HEENT: Yes (FRONTAL SKULL FX DUE TO SYNCOPAL EPISODE 01/2014) Cataract Cancer: No Psychosocial: No Integumentary: No Blood Disorders: No Adverse Reaction/Blood Tranf: No Family Medical History Family history: Cardiovascular disease 19 FATHER (PACEMAKER) 19 MOTHER Family history: Diabetes mellitus 19 MOTHER Physical Exam Vital Signs Vital Signs - First Documented 08/04/21 00:20 Temp 36.8 Pulse 76 Resp 18 B/P (MAP) 185/103 (130) Pulse Ox 96 Capillary Refill : Height, Weight, BMI Height: 5'10.00" Weight: 240lbs. 0.0oz. 108.036163dx; 32.00 BMI Method:Stated General Appearance: WD/WN, no apparent distress, other (AMBULATES IN USING A WALKER) Knees: right knee other (RIGHT KNEE WITH STERISTRIPS IN PLACE--WOUND IS CLEAN, DRY AND INTACT. MODERATE SWELLING TO KNEE, VERY FAINT ERYTHEMA AROUND THE KNEE, BUT PT REPORTS IS NOT ANY DIFFERENT THAN IT HAS BEEN SINCE SURGERY. MILD MID ANTERIOR THIGH TENDERNESS--NO SWELLING OR DISCOLORATION TO THIGH. NORMAL POST-OP APPEARING 1-2+ SWELLING TO LOWER LEG. NO CALF TENDERNESS AND NEGATIVE LIBIA'S SIGN. NO CORDING. NO MEDIAL OR POSTERIOR OR LATERAL THIGH TENDERNESS. NO ERYTHEMA OR DISCOLORATION TO THIGH. DISTAL MOTOR/SENSORY/VASCULAR INTACT. ) Neurologic/Tendon: normal sensation, normal motor functions Neurologic/Psychiatric: no motor/sensory deficits, alert, normal mood/affect Skin: warm/dry Progress/Results/Core Measures Results/Orders My Orders Orders - SEAN ABBASI DO Oxycodone/Acet 10/325mg Tablet (Percocet (08/04/21 01:15) Rx-Oxycodone/Apap 5-325 Mg (Rx-Percocet (08/04/21 01:15) Vital Signs/I&O 08/04/21 00:20 Temp 36.8 Pulse 76 Resp 18 B/P (MAP) 185/103 (130) Pulse Ox 96 Blood Pressure Mean: 130 Departure Impression Primary Impression: Postoperative pain of right knee Additional Impression: Status post right knee replacement Disposition: 01 HOME, SELF-CARE Condition: Stable Departure-Patient Inst. Decision time for Depature: 01:00 Referrals: BRADFORD VELASQUEZ DO (PCP) Primary Care Physician JASMIN BRAUN DO (Family) Primary Care Physician Patient Instructions: Postoperative Pain (DC) Add. Discharge Instructions: CONTINUE ALL PREVIOUS POST OP INSTRUCTIONS CONTINUE TRAMADOL FOR MILD TO MODERATE PAIN TAKE OXYCODONE FOR PAIN UNRELIEVED BY TRAMADOL FOLLOW UP WITH DR. VELASQUEZ'S OFFICE ON FRIDAY FOR FURTHER CARE RETURN TO ER IF YOUR PAIN WORSENS, OR IF YOU DEVELOP FEVER OR ANY NEW SYMPTOMS All discharge instructions reviewed with patient and/or family. Voiced unde rstanding. Scripts Oxycodone HCl/Acetaminophen (Oxycodone-Acetaminophen 5-325) 1 Each Tablet 1 EACH PO Q4H PRN for PAIN-MODERATE MDD 6 for 3 Days, #20 TAB 0 Refills Prov: SEAN ABBASI DO 08/04/21 SEAN ABBASI DO Aug 04, 2021 01:02
[2021-08-04] MEDS ORDERED: OXYC1TAB11 PO (01:05)
[2021-08-04] MEDS ORDERED: RX-OXYCODONE/APAP 5-325 MG #4 TAB PK PO PRN (01:15)
[2021-08-04] MEDS ORDERED: oxyCODONE/APAP 10/325MG (PERCOCET 10) TABLET PO ONE (01:15)
[2021-08-04] MEDS ORDERED: oxyCODONE/APAP 5/325MG (PERCOCET 5) TABLET PO ONE (01:15)
[2021-08-04 01:19] VITALS: BP 185/103
== END 2021-08-04 01:19 | disposition home or self-care (01) ==
LOC: EDUNIT# 00:06 → ER 00:10
DX: G89.18 Other acute postprocedural pain (principal); M25.561 Pain in right knee; I10 Essential (primary) hypertension; I48.91 Unspecified atrial fibrillation; Z96.651 Presence of right artificial knee joint; Z79.01 Long term (current) use of anticoagulants; Z79.899 Other long term (current) drug therapy
CPT/HCPCS: 99283

== ENCOUNTER → 2021-08-07 | Outpatient (CLI) | payer MEDICARE, OTHER ==
[~2021-08-07] MED LIST changes: +OXYC1TAB11 PO
== END ==
PROVIDERS: ATTEND Internal Medicine Cardiovascular Disease
DX: I34.0 Nonrheumatic mitral (valve) insufficiency (principal); I11.9 Hypertensive heart disease without heart failure
CPT/HCPCS: 93306

== ENCOUNTER 2021-08-17 12:45 | Outpatient (RCR) | payer MEDICARE, OTHER | END 2021-08-20 | disposition home or self-care (01) | PROVIDERS: ATTEND Nurse Practitioner Family | DX: Z47.1 Aftercare following joint replacement surgery (principal); Z96.651 Presence of right artificial knee joint ==

== ENCOUNTER → 2021-09-17 | Outpatient (RCR) | payer MEDICARE, OTHER | END | disposition home or self-care (01) | PROVIDERS: ATTEND Nurse Practitioner Family | DX: Z47.1 Aftercare following joint replacement surgery (principal); Z96.651 Presence of right artificial knee joint ==

== ENCOUNTER 2021-10-05 12:51 | Outpatient (RCR) | payer MEDICARE, OTHER | END 2021-10-18 | disposition home or self-care (01) | PROVIDERS: ATTEND Nurse Practitioner Family | DX: M25.561 Pain in right knee (principal); Z96.651 Presence of right artificial knee joint ==

== ENCOUNTER 2022-03-20 07:54 | Day surgery (SDC) | payer OTHER, MEDICARE ==
[~2022-03-20] VITALS: Ht 177.8 cm; Wt 105.3 kg
[2022-03-20] VITALS (11 sets, daily range): BP systolic 127–143; BP diastolic 74–93
[2022-03-20] MEDS ORDERED: LIDOCAINE 1% INJ 20 ML VIAL ONE (08:00)
[2022-03-20] MEDS ORDERED: NS IV 1000 ML 1,000 ML ONE (08:00)
[2022-03-20] MEDS ORDERED: HEParin (CATH LAB) 1,000 ML IV ONE (08:00)
[2022-03-20] MEDS ORDERED: NS IV 1000 ML 1,000 ML IV SCH ×2 (08:15→11:15)
--- NOTE | 2022-03-20 08:38 | Diagnostic Imaging Report ---
INDICATION: Congestive heart failure, evaluation prior to heart catheterization, pacemaker. TECHNIQUE: Single view chest 8:34 AM. CORRELATION STUDY: 09/02/2019 FINDINGS: Left-sided pacemaker. Heart size enlarged. Mediastinum is mildly prominent with tortuous course of thoracic aorta. The lungs are clear with no consolidating infiltrate. There is no significant effusion or pneumothorax. IMPRESSION: 1. Borderline heart size without evidence for failure. Dictated by: Dictated on workstation # [id number]
[2022-03-20 08:44] LABS: HEMATOCRIT 46 % (40-54); HEMOGLOBIN 14.7 g/dL (13.3-17.7); MEAN CORPUSCULAR HEMOGLOBIN 27 pg (25-34); MEAN CORPUSCULAR HGB CONC 32 g/dL (32-36); MEAN CORPUSCULAR VOLUME 85 fL (80-99); MEAN PLATELET VOLUME 10.2 fL (9.0-12.2); PLATELET COUNT 213 10^3/uL (130-400); WHITE BLOOD COUNT 5.6 10^3/uL (4.3-11.0)
[2022-03-20] MEDS ORDERED: OMEP40CA6 PO (08:55)
[2022-03-20] MEDS ORDERED: RIVA20TA PO (08:55)
[2022-03-20] MEDS ORDERED: MULT-1056 PO (08:55)
[2022-03-20] MEDS ORDERED: ATOR20TA66 PO (08:55)
[2022-03-20] MEDS ORDERED: FURO40TA4 PO (08:55)
[2022-03-20] MEDS ORDERED: VITA400T9 PO (08:55)
[2022-03-20] MEDS ORDERED: POTA-177 PO (08:55)
[2022-03-20] MEDS ORDERED: OMG1KC PO (08:55)
[2022-03-20 09:07] LABS: ALBUMIN 4.1 GM/DL (3.2-4.5); BILIRUBIN,TOTAL 1.2 MG/DL (0.1-1.0); CALCIUM 9.5 MG/DL (8.5-10.1); CREATININE SERUM 1.64 MG/DL (0.60-1.30); POTASSIUM 4.2 MMOL/L (3.6-5.0); TOTAL PROTEIN 7.4 GM/DL (6.4-8.2)
--- NOTE | 2022-03-20 09:27 | Cardiac Procedure Note-CS/ASA ---
Pre-Procedure Note Pre-Op Procedure Note Date of Available H&P: Mar 12, 2022 Date H&P Reviewed: Mar 20, 2022 Time H&P Reviewed: History & Physical: H&P Reviewed, Patient Examed, No changes noted Pre-Operative Diagnosis: coronary artery disease, mitral regurgitation Conscious Sedation Pre-Proced Time ASA Score 3 For ASA 3 and 4: Consider anesthesia and medical clearance. Also, for patients with a history of failed moderate sedation consider anesthesia. Airway Lungs Heart ASA score ASA 1: a normal healthy patient ASA 2: a patient with a mild systemic disease (mid diabetes, controlled hypertension, obesity ASA 3: a patient with a severe systemic disease that limits activity (angina, COPD, prior Myocardial infarction) ASA 4: a patient with an incapacitating disease that is a constant threat to life (CHF, renal failure) ASA 5: a moribund patient not expected to survive 24 hrs. (ruptured aneurysm) ASA 6: a declared brain- patient whose organs are being harvested. For emergent operations, add the letter E after the classification Mallampati Classification Grade 3 Sedation Plan Analgesia, Amnesia, Plan communicated to team members, Discussed options with patient/fam, Discussed risks with patient/fam The patient is an appropriate candidate to undergo the planned procedure, sedation, and anesthesia. The patient immediately re-assessed prior to indication. LIZ THOMPSON MD Mar 20, 2022 09:27
[2022-03-20 09:46] LABS: INR 1.1 (0.8-1.4); PROTHROMBIN TIME PATIENT 14.4 SEC (12.2-14.7)
[2022-03-20] MEDS ORDERED: VERAPAMIL 5 MG/2 ML (CALAN) VIAL IV ONE (10:04)
[2022-03-20] MEDS ORDERED: NITRO DRIP 25000 MCG/D5W 250 ML IV ONE (10:05)
[2022-03-20] MEDS ORDERED: MIDAZOLAM 5 MG/5 ML (VERSED) VIAL ONE (10:05)
[2022-03-20] MEDS ORDERED: HEParin 1000 UNIT/ML (10ML VIAL) FOR BOLUS ONE (10:05)
[2022-03-20] MEDS ORDERED: fentaNYL INJ 100 MCG/2 ML AMP ONE (10:05)
--- NOTE | 2022-03-20 11:08 | Discharge Inst-Post CATH ---
Discharge Inst-CATH/EP Problems Reviewed?: Yes Post Cardiac Cath/EP D/C Inst Follow Up/Plan Appointment with Dr Jones office in 2-[address] Robles in 2 weeks <b>CARDIAC CATH/EP PROCEDURE DISCHARGE INSTRUCTIONS</b> ACTIVITY * Go Home directly and rest. * Limit activity of the leg (or wrist if it was used) for 7 days including aerobics, swimming, jogging, bicycling, etc. * Restrict stair-climbing for 7 days if possible, if not, climb up with your non-cath leg, then bring together on the same step. * Avoid lifting, pushing, pulling or excessive movement of the affected extremity for 7 days. * Customary sexual activity may be resumed after 2 days-use caution not to use a position that strains or causes pain to the affected extremity. * No driving for 24 hours. * NO SMOKING. * Avoid straining for bowel movements for 7 days. * Gentle walking on level ground is allowed. * Returning to work will depend on the type of procedure and the results. Your doctor will discuss this with you. CALL YOUR DOCTOR FOR ANY OF THE FOLLOWING: *If bleeding from the puncture site occurs- Apply gentle pressure to site with clean cloth and call your doctor or EMS. * If a knot or lump forms under the skin, increases in size, or causes pain. * If bruising appears to be worsening or moving further down your leg instead of disappearing. * Temperature above 101 F. CARE OF YOUR GROIN INCISION; * Bruising or purple discoloration of the skin near the puncture site is common. * You may shower only, no bathtub bathing for 5 days. Be careful to avoid slipping as your leg may feel stiff. * If a closure device was used on your femoral artery, please see the attached guide regarding care of the device and your leg. * Leave dressing on FOR 24 hours. CARE OF YOUR WRIST INCISION; * Bruising or purple discoloration of the skin near the puncture site is common. * You may shower. * DO NOT submerge wrist. * Leave dressing on FOR 24 hours. LIZ JONES MD Mar 20, 2022 11:08
--- NOTE | 2022-03-20 11:13 | Cardiac Cath Report ---
Cardiac Cath Report Physician (s)/Intelligence Director (s) Physician LIZ THOMPSON MD Pre-Procedure Diagnosis Pre-Procedure Diagnosis: coronary artery disease, mitral regurgitation Post-Procedure Note Procedure Start Date: Mar 20, 2022 Name of Procedure: Left heart cath Aortic arch angiogram Findings/Procedure Note PROCEDURE NOTE: 77 years old gentleman with severe mitral regurgitation, scheduled for mitral valve clip, had an abnormal stress test, scheduled for cardiac catheterization possible PTCA. After explaining the procedure to the patient, all pros and cons were explained, all questions were answered. The patient signed the consent and then he was placed on the cardiac catheterization laboratory. Groin was prepped SL fashion local anesthesia was used. Sheath placed in the right radial artery, Oxford catheter was advanced with difficulty through the brachial artery due to tortuosity, I used baby J-wire. Engaged the right and left coronary system then exchanged the wire and any advanced regular J-wire to the left ventricular cavity advanced the catheter pressure was measured pullback LV to aorta was done then due to the difficulty with manipulating the catheter I was concerned about the shape of the aorta, I evaluate aortic arch angiogram. At the end of the procedure the sheath was removed. 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 No obstructive disease Right Coronary Artery is dominant artery with mild disease nonobstructive disease LV Gram was not done, pressure was measured Aorta evaluation done with aortic arch angiogram showing normal aortic arch in size, no dissection or aneurysm, origin of the brachiocephalic artery, left subclavian and left carotid arteries. CONCLUSION: 1. 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 No obstructive disease 2. Dominant right coronary artery with mild disease nonobstructive disease 3. 40 to 50% stenosis in the mid LAD nonobstructive disease 4. Normal aortic arch and great vessels of the neck. DISCUSSION AND RECOMMENDATION: Patient will be referred for evaluation with mitral valve clip Anesthesia Type: Conscious Sedation Estimated blood loss (mL): 10 ml Contrast Amount: 35 ml Total Radiation Dose: 574 mGy Post-Procedure Diagnosis Post-operative diagnosis: Coronary artery disease Severe mitral regurgitation Hypertension Hyperlipidemia LIZ THOMPSON MD Mar 20, 2022 11:13
== END 2022-03-20 14:35 | disposition home or self-care (01) ==
LOC: CATH 07:54 → SDC 11:31 → CATH 14:35
PROVIDERS: ATTEND Internal Medicine Cardiovascular Disease
DX: I25.10 Atherosclerotic heart disease of native coronary artery without angina pectoris (principal); I34.0 Nonrheumatic mitral (valve) insufficiency; E78.5 Hyperlipidemia, unspecified; I11.0 Hypertensive heart disease with heart failure; I50.9 Heart failure, unspecified; Z79.899 Other long term (current) drug therapy; Z79.01 Long term (current) use of anticoagulants
CPT/HCPCS: 36221; 71045; 80053; 80061; 85027; 85610; 85730; 87081; 93005; 93458; C1769; C1894; 36415